=== PATIENT | female | born 1955 | race Caucasian/White ===

== ENCOUNTER 2019-06-06 07:41 | Emergency (ER) | payer OTHER ==
[2019-06-06 07:54] VITALS: TEMP 98; BMI 34.0
--- NOTE | 2019-06-06 08:57 | PDOC ---
History of Present Illness - General Chief Complaint: Pain, Acute Stated Complaint: BLOOD IN URINE,BACK PAIN TO RIGHT LEG Time Seen by Provider: 06/06/19 08:06 History Source: Patient Exam Limitations: No Limitations - History of Present Illness Initial Comments: 06/06/19 09:14 64 yo F pmh HTN, MDD, and hypothyroidism presenting with 4-5 days of constant dull right flank pain with radiation down right thigh. UA done by PCP found blood, was treated with 1 week of abx for UTI by [employer]. Endorses mild chills last PM. Denies fevers, dysuria, gross hematuria, N/V/D/Abdpain, chest pain, SOB. Not sexually active. PMH as above Meds: see chart NKDA No surgeries Past History - Past Medical History Allergies/Adverse Reactions: Allergies Allergy/AdvReac Type Severity Reaction Status Date / Time No Known Allergies Allergy Verified 06/06/19 07:51 Home Medications: Ambulatory Orders Sulfamethoxazole/Trimethoprim [Bactrim Ds -] 1 tab PO BID #14 tablet 06/06/19 COPD: No HTN: Yes Thyroid Disease: Yes - Immunization History Immunization Up to Date: Yes - Suicide/Smoking/Psychosocial Hx Smoking History: Never smoked Hx Alcohol Use: No Drug/Substance Use Hx: No Review of Systems - Review of Systems Able to Perform ROS?: Yes Is the patient limited Estonian proficient: No Constitutional: Yes: See HPI, Chills. No: Diaphoresis, Fever, Malaise, Weakness HEENTM: No: Symptoms Reported, See HPI, Eye Pain, Blurred Vision, Tearing, Recent change in vision, Double Vision, Cataracts, Ear Pain, Ocular Prothesis, Ear Discharge, Nose Pain, Nose Congestion, Tinnitus, Nose Bleeding, Hearing Loss , Throat Pain, Throat Swelling, Mouth Pain, Dental Problems, Difficulty Swallowing, Mouth Swelling, Other Respiratory: No: Symptoms reported, See HPI, Cough, Orthopnea, Shortness of Breath, SOB with Exertion, SOB at Rest, Stridor, Wheezing, Productive cough, Hemoptysis, Other Cardiac (ROS): No: Symptoms Reported, See HPI, Chest Pain, Edema, Irregular Heart Rate, Lightheadedness, Palpitations, Syncope, Chest Tightness, Other ABD/GI: No: Symptoms Reported, See HPI, Abdominal Distended, Abd. Pain w/ defecation, Blood Streaked Bowels, Constipated, Diarrhea, Difficulty Swallowing , Nausea, Poor Appetite, Poor Fluid Intake, Rectal Bleeding, Vomiting, Indigestion, Abdominal cramping, Tarry Stools, Other : Yes: See HPI, Flank Pain. No: Burning, Dysuria, Discharge, Frequency, Hematuria, Incontinence, Pain, Urgency Musculoskeletal: No: Symptoms Reported, See HPI, Back Pain, Gout, Joint Pain, Joint Swelling, Muscle Pain, Muscle Weakness, Neck Pain, Joint Stiffness, Other Integumentary: No: Symptoms Reported, See HPI, Bruising, Change in Color, Change in Hair/Nails, Dryness, Erythema, Flushing, Lesions, Lumps, Pallor, Pruritus, Rash, Sweating, Other Neurological: No: Symptoms reported, See HPI, Headache, Numbness, Paresthesia, Pre-Existing Deficit, Seizure, Tingling, Tremors, Weakness, Unsteady Gait, Ataxia, Dizziness, Other Endocrine: No: Symptoms Reported, See HPI, Excessive Sweating, Flushing, Intolerance to Cold, Intolerance to Heat, Increased Hunger, Increased Thirst, Increased Urine, Unexplained Weight Gain, Unexplained Weight Loss, Change in Weight, Other Hematologic/Lymphatic: No: Symptoms Reported, See HPI, Anemia, Blood Clots, Easy Bleeding, Easy Bruising, Bleeding Diathesis, Lymph Node Abnormalities, Swollen Glands, Other All Other Systems: Reviewed and Negative *Physical Exam - Vital Signs Last Vital Signs Temp Pulse Resp BP Pulse Ox 98.0 F 68 18 117/77 97 06/06/19 07:52 06/06/19 07:52 06/06/19 07:52 06/06/19 07:52 06/06/19 07:52 - Physical Exam Comments: 06/06/19 09:19 GEN: sitting comfortably in chair, NAD HEENT: NC/AT, EOMI, PERRLA CV: S1/S2, RRR, no m/r/g LUNG: CTAB, no wheezes/crackles GI: soft, nd, neg CVATB. patient endorsed discomfort at RLQ but "not pain" ED Treatment Course - LABORATORY CBC & Chemistry Diagram: 06/06/19 09:20 06/06/19 14:20 Medical Decision Making - Medical Decision Making 06/06/19 08:55 64 yo F presenting with right flank pain for 4-5 days. PCP UA found blood, was previously treated with 1 week of abx by [employer]. Exam demonstrated RLQ discomfort to palpation but no tenderness. No CVAT. DDx - kidney stone, UTI; less likely pyelonephritis, appendicitis R flank pain - UA, UCx, CBC, CMP - IV, pain ctrl - consider CT after labs 06/06/19 10:12 Patient was prescribed nitrofuratoin for 7 days starting 05/26 UTI pos Ceftriaxone 06/06/19 10:52 Elevated K -> EKG 06/06/19 15:03 Repeat K wnl Dispo home with bactrim DS *DC/Admit/Observation/Transfer Diagnosis at time of Disposition: Urinary tract infection Qualifiers: Urinary tract infection type: site unspecified Hematuria presence: without hematuria Qualified Code(s): N39.0 - Urinary tract infection, site not specified - Discharge Dispostion Disposition: HOME Condition at time of disposition: Stable Decision to Admit order: No - Prescriptions Prescriptions: Sulfamethoxazole/Trimethoprim [Bactrim Ds -] 1 tab PO BID #14 tablet - Referrals Referrals: Ayleen Rolon [Primary Care Provider] - - Patient Instructions Printed Discharge Instructions: DI for Urinary Tract Infection (UTI) Additional Instructions: You were seen and treated in the Emergency Department today. You were given IV fluids and an antibiotic for your symptoms. We have sent antibiotics to your pharmacy, please pick them up and take as directed. Please follow up with your primary care doctor within the next 5-7 days. Return to the Emergency Department if you experience any of the following: - worsening of your pain - unremitting pain - high fever - any signs and symptoms that concerns you - Post Discharge Activity
[2019-06-06] MEDS ORDERED: ACETAMINOPHEN 1000 MG/100 ML VIAL (NON FORMULARY) IVPB ONE (09:13)
[2019-06-06] MEDS ORDERED: ACETAMINOPHEN INJECTION 100 ML IVPB ONE (09:24)
[2019-06-06 09:38] LABS: EPI CELLS 5.6 /HPF (0-5/HPF); HYALINE CASTS 6 /lpf (0-8); URINE APPEARANCE CLOUDY; URINE BACTERIA 158.9 /hpf (NEGATIVE); URINE BILIRUBIN NEGATIVE (NEGATIVE); URINE COLOR YELLOW; URINE GLUCOSE (UA) NEGATIVE (NEGATIVE); URINE KETONE NEGATIVE (NEGATIVE); URINE LEUK ESTERASE 3+ (NEGATIVE); URINE NITRITE NEGATIVE (NEGATIVE); URINE PROTEIN NEGATIVE (NEGATIVE); URINE RBC 2 /hpf (0-4); URINE UROBILINOGEN 0.2 mg/dL (0.2-1.0); URINE WBC 50 /hpf (0-5)
[2019-06-06 09:48] LABS: BASO % 0.5 % (0-2.0); EOS % 5.9 % (0-4.5); HEMATOCRIT 38.5 % (32.4-45.2); HEMOGLOBIN 13.1 GM/dL (10.7-15.3); LYMPH % 15.3 % (8-40); MCH 30.1 pg (25.7-33.7); MEAN CELL VOLUME 88.5 fl (80-96); MEAN PLT VOLUME 10.3 fl (7.5-11.1); MONO % 8.9 % (3.8-10.2); NEUT % 69.4 % (42.8-82.8); PLATELET COUNT 220 K/MM3 (134-434); RBC 4.34 M/mm3 (3.60-5.2); RDW 13.6 % (11.6-15.6); WHITE BLOOD COUNT 6.6 K/mm3 (4.0-10.0)
--- NOTE | 2019-06-06 10:30 | PDOC ---
Attending Attestation - Resident Resident Name: WhalenSaman - ED Attending Attestation I have performed the following: I have examined & evaluated the patient, The case was reviewed & discussed with the resident, I agree w/resident's findings & plan - HPI HPI: 06/06/19 10:39 64y/o F HTN p/w R flank pain radiating to R groin/lower leg that has been progressive for 4 days. no injury/trauma, no f/c/urinary complaints. dull pain in R flank/torso, constant and not relieved with tylenol/motrin. not positional, no motor/sensory issues in RLE. has had sciatica type sxs in the past, similar to this. no h/o recurring UTI. - Physicial Exam PE: 06/06/19 10:41 VSS alert, seated comfortably in chair, nad no jaundice/pallor s1s2 rrr, ctab soft/nd. discomfort to palpation along lateral R abdomen, no cvat, no guarding/ rebound. BS nl. slight R low back discomfort without midline ttp/deformity. no swelling/ bruising. + ttp over R upper buttock/sciatic area. 5/5 flex/extend b/l hip/knee/ ankle/toe. no rash - Medical Decision Making 06/06/19 10:47 64-year-old female with atraumatic right low back/on discomfort also radiating to right lower extremity. No urinary symptoms, but presentation could be consistent with UTI/early pyelonephritis. Question musculoskeletal such as sciatica versus radiculopathy, neurologically intact. Labs, urinalysis No indication for emergent spine imaging Reassess 06/06/19 12:18 uti on UA, labs wnl but K 5.8. EKG without changes. will give iv fluids and repeat K (? lab error). in setting of asx mild hyperK with normal renal function and no EKG changes, can proceed with d/c plan on abx with PCP f/u. Heart Score/ECG Review #1 ECG reviewed & interpreted by me at: 11:12 General ECG Interpretation: Sinus Rhythm, Normal Rate (59), Normal Intervals ( qtc 427, no peaked T waves, IRBBB qrs 84), No acute ischemic changes
[2019-06-06 10:32] LABS: BILIRUBIN,TOTAL 0.4 mg/dL (0.2-1); CALCIUM 9.3 mg/dL (8.5-10.1); CREATININE 0.7 mg/dL (0.55-1.3); POTASSIUM 5.8 mmol/L (3.5-5.1); TOT PROT 7.3 g/dl (6.4-8.2)
[2019-06-06] MEDS ORDERED: CEFTRIAXONE 1,000 MG in DEXTROSE 5%-WATER - 50 ML IVPB ONE (10:52)
[2019-06-06] MEDS ORDERED: SODIUM CHLORIDE 1,000 ML IV ONE (11:14)
[2019-06-06] MEDS ORDERED: CEFTRIAXONE 1 GM/50 ML BAG ONE (12:17)
--- NOTE | 2019-06-06 14:29 | EKG ---
Test Reason : Blood Pressure : / mmHG Vent. Rate : 059 BPM Atrial Rate : 059 BPM P-R Int : 184 ms QRS Dur : 084 ms QT Int : 432 ms P-R-T Axes : 050 001 053 degrees QTc Int : 427 ms SINUS BRADYCARDIA INCOMPLETE RBBB NONSPECIFIC T WAVE ABNORMALITY ABNORMAL ECG WHEN COMPARED WITH ECG OF 24-MAR-2010 11:17, NO SIGNIFICANT CHANGE WAS FOUND Confirmed by MD CASEY, JHON ([id number]) on 06/06/2019 2:29:05 PM Referred By: Confirmed By:JHON PEÑA MD
[2019-06-06 14:57] LABS: BLOOD UREA NITROGEN 16.7 mg/dL (7-18); CALCIUM 8.4 mg/dL (8.5-10.1); CREATININE 0.7 mg/dL (0.55-1.3); POTASSIUM 4.2 mmol/L (3.5-5.1)
[2019-06-06 15:15] VITALS: BP 112/78; PULSE 75
== END 2019-06-06 15:15 | disposition home or self-care (01) ==
LOC: JER 07:41
PROC: 3E0337Z Introduction of Electrolytic and Water Balance Substance into Peripheral Vein, Percutaneous Approach (ICD-10-PCS; principal; 2019-06-06)
PROC: 3E03329 Introduction of Other Anti-infective into Peripheral Vein, Percutaneous Approach (ICD-10-PCS; 2019-06-06)
PROC: 3E033NZ Introduction of Analgesics, Hypnotics, Sedatives into Peripheral Vein, Percutaneous Approach (ICD-10-PCS; 2019-06-06)
DX: N39.0 Urinary tract infection, site not specified (principal); I10 Essential (primary) hypertension; E03.9 Hypothyroidism, unspecified; F33.9 Major depressive disorder, recurrent, unspecified
CPT/HCPCS: 36415; 80048; 80053; 81003; 85025; 87086; 93005; 93010; 99282-25; J0131; J7030